=== PATIENT | female | born 1975 | race African-American/Black ===

== ENCOUNTER 2017-04-15 20:35 | Emergency (ER) | payer OTHER ==
--- NOTE | ~2017-04-15 | CT2 ---
[facility] A Service of [facility] RADIOLOGY TEXT RESULTS PATIENT: DENVER CARRION LOCATION: [facility] : 73 UNIT #: [id number] AGE: [address]: Yair Napoles MD SEX: F ORDER DR: [id number] [facility] [address] [place], [place] [address] [id number] E MR#: [id number] Acc #: [id number] NAME: DENVER CARRION. : 1975 SEX: F STUDY DATE/TIME: 04/16/2017 2:40 UNIT: [facility] ROOM: STUDY DESCRIPTION: CT Abd and Pelv W Cont Attending Physician: Yair Napoles M.D. Ordering Physician: Mathew Morris D.O. Primary Care Physician: Donnie DonaldRShobha MEDICAL IMAGING REPORT This report is preliminary unless electronic signature is present EXAM CT abdomen and pelvis INDICATION Generalized abdominal pain. Nausea, vomiting, diarrhea. TECHNIQUE CT of the abdomen and pelvis utilizing 100 mL Isovue-370 IV contrast. Coronal and sagittal reconstructions were obtained. This CT exam was performed with one or more of the following radiation dose reduction techniques: automatic exposure control, adjustment of mA and/or kV according to patient size, and iterative reconstruction. COMPARISON CT abdomen and pelvis dated 03/22/2011. FINDINGS ABDOMEN: There is a small pericardial effusion measuring 1.0 cm in thickness. Patient has a gastric band. There is somewhat horizontal orientation of the band, however, there is no eccentric pouch dilation above the band. Liver, pancreas, spleen, and adrenal glands are within normal limits. Kidneys enhance normally. No hydronephrosis. The bowel is not dilated. The appendix is normal. The abdominal aorta is normal in caliber. PELVIS: There is a low-attenuation cyst in the left ovary measuring 4.8 cm. This is compatible with a benign follicular cyst. Uterus is surgically absent. No enlarged pelvic or inguinal lymph nodes. [facility] A Service of [facility] RADIOLOGY TEXT RESULTS PATIENT: DENVER CARRION LOCATION: [facility] #: [id number] : 73 UNIT #: [id number] AGE: [address]: Yair Napoles MD SEX: F ORDER DR: No acute osseous abnormalities. IMPRESSION 1. 4.8 cm follicular cyst in the left ovary. 2. Small pericardial effusion. Dictated by... Wilber Rose M.D. THIS IS AN ELECTRONICALLY VERIFIED REPORT Wilber Rose M.D. at 04/16/2017 4:38 AM JUJU/missy TD: 04/16/2017 03:47 JOB #: [id number] MEDICAL IMAGING REPORT Page 1 of 1 COPY
[~2017-04-15 20:35] MED LIST: CIPRO PO; CLOBETASOL 0.0560 GM TOP; CLONIDINE PO; CYANOCOBAL1000 MCG/M INJ; GLUCOPHAGE500 MG PO; HYDRALAZINE HCL25 MG PO; HYDRALAZINE HCL50 MG PO; HYDROCODON-ACE1 EAC5 PO; KLONOPIN0.5 MG PO; LIPITOR20 MG PO; LOSARTAN POTASS50 MG PO; METFORMIN PO; NORCO 7.5-3251 EACH PO; OMEPRAZOLE20 M2 PO; PHENERGAN25 MG PO; PRILOSEC20 MG PO; VITAMIN B-1000 MCG/1 IM; VITAMIN D250000 UNIT PO; VITAMIN D50000 UNIT PO
[2017-04-16 01:41] LABS: BASOPHIL# 0.1 X10e3 (0-0.3); EOSINOPHIL% 0.3 % (0.0-7.0); HEMATOCRIT 42.9 % (35.0-45.0); HEMOGLOBIN 14.7 gm/dL (12.0-16.0); LYMPHOCYTE# 1.3 X10e3 (1.0-3.5); LYMPHOCYTE% 16.4 % (17.0-45.0); MEAN CELL VOLUME 97.1 FL (83-96); MEAN CORPUSCULAR HEMOGLOBIN 33.2 PG (28-34); MEAN CORPUSCULAR HGB CONC 34.2 g/dL (30-36); MEAN PLATELET VOLUME 7.8 FL (6.5-11.5); MONOCYTE# 0.3 X10e3 (0-1.0); MONOCYTE% 3.3 % (3.0-12.0); NEUTROPHIL# 6.2 X10e3 (1.5-7.1); PLATELET COUNT 338 X10e3 (140-420); RED BLOOD COUNT 4.41 X10e (3.90-5.30); WHITE BLOOD COUNT 7.9 X10e3 (4.0-10.5)
[2017-04-16 01:42] LABS: DIFF IND NO
[2017-04-16 02:12] LABS: ALBUMIN SERUM 4.9 g/dL (3.5-5.0); BILIRUBIN, DIRECT 0.1 mg/dL (0.0-0.2); BILIRUBIN,INDIRECT 0.4 mg/dL (0.0-0.9); BILIRUBIN,TOTAL 0.5 mg/dL (0.2-2.0); BUN/CREATININE RATIO 15.71; CALCIUM SERUM 10.4 mg/dL (8.4-10.2); CREATININE SERUM 0.7 mg/dL (0.6-1.4); GLOM FILT RATE Estimated 123.9 mL/min (>60); PROTEIN TOTAL SERUM 8.6 g/dL (6.0-8.3)
[2017-04-16 03:31] LABS: URINE SOURCE CLEAN CATCH
[2017-04-16 03:37] LABS: URINE APPEARANCE CLEAR; URINE BILIRUBIN NEG (NEG); URINE BLOOD NEG (NEG); URINE COLOR YELLOW; URINE GLUCOSE 100 MG/DL (NEG); URINE KETONE NEG (NEG); URINE LEUKOCYTE ESTERASE NEG (NEG); URINE NITRATE NEG (NEG); URINE PH 7.5 (5-8); URINE PROTEIN TRACE (NEG); URINE SPECIFIC GRAVITY 1.021 (1.003-1.035); URINE UROBILINOGEN 0.2 MG/DL (NEG)
[2017-04-16 03:40] LABS: CULTURE INDICATED? NO
== END 2017-04-16 04:10 | disposition home or self-care (01) ==
LOC: CED 20:35
PROVIDERS: Emergency Medicine
DX: R10.9 Unspecified abdominal pain (principal); R11.2 Nausea with vomiting, unspecified; R19.7 Diarrhea, unspecified; I10 Essential (primary) hypertension; K21.9 Gastro-esophageal reflux disease without esophagitis; F17.200 Nicotine dependence, unspecified, uncomplicated; E11.9 Type 2 diabetes mellitus without complications; Z90.49 Acquired absence of other specified parts of digestive tract; Z90.710 Acquired absence of both cervix and uterus; Z88.0 Allergy status to penicillin; Z88.5 Allergy status to narcotic agent
CPT/HCPCS: 36415; 74177; 80048; 80076; 81003; 82150; 83690; 84703; 85025; 96372; 96374; 96375; 96376; 99284; C9113; J0500; J1885; J2405; J2765; Q9967